=== PATIENT | male | born 2000 | race Two or more races ===

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

== ENCOUNTER 2025-03-27 08:04 | Emergency (ER) | payer OTHER, SELFPAY ==
[2025-03-27 08:05] VITALS: BP 124/70; PULSE 81; RESP 18; TEMP 36.6; O2SAT 100; BMI 21.3
--- NOTE | 2025-03-27 08:35 | CT_ITS ---
PROCEDURE: CHEST WITH CONTRAST 03/27/2025 REASON FOR EXAM: RIGHT ANTERIOR CHEST WALL SWELLING. Collar bone pain radiating down right arm. No injury. TECHNIQUE: Procedure Code: CTCHW Modality: CT Procedure: CHEST WITH CONTRAST Coronal and Sagittal reconstruction series were provided. NOTE: Images acquired with the right arm down in the left arm raised. CONTRAST: Isovue-300 VOLUME: 100 mL One or more dose reduction techniques were used (e.g., Automated exposure control, adjustment of the mA and/or kV according to patient size, use of iterative reconstruction technique). RADIATION DOSE SUMMARY: CTDlvol: 9.97, 8.02 mGy DLP: 333.80 mGycm COMPARISON: None. FINDINGS: LUNGS: The lungs are clear. No focal airspace consolidation. No pulmonary mass. PLEURAL SPACES: No pleural effusion. No pneumothorax. HEART: No cardiomegaly. No significant pericardial effusion. MEDIASTINUM/HILUM: No significant lymphadenopathy. AORTA: No aneurysm or dissection. CHEST WALL/MUSCULATURE: Images acquired with the right arm down in the left arm raised. Relative enlargement of the right pectoralis musculature compared to the left. No focal mass, intramuscular hematoma, fluid collection, fat stranding or skin thickening is identified. Multiple small axillary lymph nodes bilaterally, all subcentimeter and without suspicious morphology. BONES: No focal osseous abnormality or acute fracture. UPPER ABDOMEN: The upper abdominal solid organs are unremarkable. CT/Chest WITH Contrast IMPRESSION: 1. Asymmetric right pectoralis muscle prominence without discrete mass, hemato ma, or inflammatory change. This may be positional or related to asymmetric muscle activation from arm positioning duri ng image acquisition. Other considerations include muscle strain or early inflammatory or neuropathic process. If symptom s continue or worsen, consider targeted MRI of the chest wall/brachial plexus for further evaluation. 2. Coronary artery calcification (CAC) is absent. Reading Location: [id number]
--- NOTE | 2025-03-27 08:38 | EX.ED.UPPERE ---
HPI History of Present Illness Chief Complaint: Upper Extremity Injury Informant: patient Narrative Narrative: 24-year-old male presenting to the emergency room with right clavicular pain. Patient states that a couple days ago he woke up and had some generalized soreness of the right clavicle region. He denies any known trauma to the area. Now he has noticed some swelling and continued pain. Pain worse with touch as well as movement of the right arm. He denies any neck symptoms no shortness of breath no fevers no cough. He has not had any rash. [facility] Medical History Foot fracture, left Home Medications ?Medication ?Instructions ?Recorded ?Last Taken ?Type NK 11/03/20 Unknown History Allergy/AdvReac Type Severity Reaction Status Date / Time No Known Allergies Allergy Verified 03/27/25 08:06 Social History Smoking Status: Never smoker ROS ROS ED Constitutional Constitutional ED: Denies chills, fever(s) or weight loss Eyes Eyes: Denies change in vision or diplopia ENT ENT ED: Denies ear pain, rhinorrhea or sore throat Cardiovascular Cardiovascular: Reports chest pain; Denies orthopnea, palpitations or racing heartbeat Respiratory/Chest Respiratory/Chest: Denies cough, dyspnea or orthopnea Gastrointestinal Gastrointestinal: Denies abdominal pain, diarrhea, nausea or vomiting Genitourinary Genitourinary ED: Denies dysuria, hematuria or urinary frequency Musculoskeletal Musculoskeletal: Denies arthralgias or myalgias Integumentary Denies abscess or rash Neurologic Neurologic: Denies headache(s) or weakness Psychiatric Psychiatric: Denies anxiety, depression, suicidal ideation or suicidal thoughts Endocrine Endocrinology: Denies polydipsia, polyphagia or polyuria Allergic/Immunologic Allergic/Immunologic ED: Denies mouth swelling, tongue swelling or urticaria EXAM Physical Exam Const Vital Signs: 03/27/25 08:05 Temperature 98 F Temperature Source Oral Pulse Rate 81 Respiratory Rate 18 Blood Pressure 124/70 H Blood Pressure Mean 88 Pulse Ox 100 Oxygen Delivery Method Room Air Positive well nourished and well developed General Appearance ED: well developed HEENT Reports normocephalic, head/scalp atraumatic and moist mucous membranes Eyes PERRL and EOMs intact bilaterally Neck full ROM, no lymphadenopathy, supple and no JVD Neck Narrative: No JVD is noted. No pulsatile masses. General: Negative for tenderness Chest Wall Chest Narrative: There is tenderness at the right sternoclavicular joint. Inferior to the clavicle there is mild swelling extending from the right sternoclavicular joint laterally. The ribs inferior to the clavicle are not tender. There is no fluctuance. No erythema. There is no bony deformity. The left nipple is sitting higher than the right. As I stepped back and look there may be a degree of ecchymosis on the upper right pec muscle. He has pain with contraction of the pectoralis muscles Resp normal respiratory effort and clear to auscultation bilaterally Cardio regular rate, regular rhythm and no murmurs GI normal to inspection, nondistended, normoactive bowel sounds and non-tender Palpation: soft Back/Spine no CVA tenderness and normal ROM Extremity normal to inspection Extremity Narrative: +2 Radial/Ulnar Pulses General Extremety ED: Negative for edema General Extremity: Negative for edema Neuro oriented x3 and CN's II-XII intact bilaterally Sensorium / Orientation: alert Motor Exam: strength 5/5 throughout Psych mental status grossly normal Mood & Affect: Negative for depressed or tearful Skin no rashes or lesions noted and no wounds MDM MDM MDM Narrative Medical decision making narrative: Differential diagnosis includes but not limited to lipoma muscle tear fracture dislocation hematoma Basic blood work was pain negative. CT of the chest demonstrates some asymmetry but his left arm was above his head the right arm not. There is no obvious fluid collection noted. Clinically I wonder if he has an injury to the pec muscle. Patient to avoid strenuous activity with the right arm and overhead movements. Would have him follow-up with orthopedics. History & Record Review Discussion w/independent historian: Patient Discharge Plan Triage Chief Complaint: Upper Extremity Injury ED Provider: Rubens Mauricio Dx/Rx/DC Orders Clinical Impression: Acute chest wall pain Prescriptions: No Action NK Primary Care Provider: Care Physician,No Primary Referrals: Nain Osborne DO [Non-Staff, Pediatrics] Alphonso Rayo DO [Med Staff - Active Staff, Orthopedics] - 1-2 Weeks Print Language: Frisian Disposition Disposition: Home, Self Care
[2025-03-27 08:55] LABS: Hematocrit 45.9 % (40-54); Hemoglobin 15.6 g/dL (13.0-16.5); Immature Granulocytes Count 0.050 X10^3/uL (0.0-0.0); Mean Corp Hgb Conc 34.0 g/dL (32-36); Mean Corpuscular Volume 86.9 fL (80-94); Mean Platelet Vol. 9.6 fl (6.2-12.0); NRBC Flagged by Analyzer 0 % (0-5); Platelet Count 210 K/mm3 (150-450); RBC Distribution Width CV 12.3 % (11.6-14.6); RBC Distribution Width SD 38.9 fl (35.1-43.9); Red Blood Count 5.28 M/mm3 (4.6-6.2); White Blood Count 10.5 K/mm3 (4.4-11.0)
[2025-03-27 09:50] VITALS: BP 119/70; PULSE 70; RESP 14; TEMP 36.6; O2SAT 100
== END 2025-03-27 09:51 | disposition home or self-care (01) ==
PROVIDERS: Emergency Provider Emergency Medicine; Visit Provider Emergency Medicine
DX: R07.89 Other chest pain (principal)
CPT/HCPCS: 71260; 85025; 99283; Q9967; A4216